=== PATIENT | female | born 1990 | race Two or more races ===

== ENCOUNTER 2023-04-10 03:39 | Emergency (ER) | payer OTHER ==
[~2023-04-10] VITALS: Ht 162.6 cm; Wt 46.3 kg
[2023-04-10] MEDS ORDERED: KEPPRA750 MG (03:51)
[2023-04-10] MEDS ORDERED: LAMICTAL200 M1 (03:51)
[2023-04-10] MEDS ORDERED: PRENATAL DHA200 MG (03:52)
[2023-04-10] MEDS ORDERED: FOLIC ACID0.8 M1 (03:52)
[2023-04-10] MEDS ORDERED: ONDANSETRON ODT4 MG PO (08:27)
[2023-04-10] MEDS ORDERED: PEPCID40 MG PO (08:27)
== END 2023-04-10 08:39 ==
LOC: ER 03:39
DX: O21.9 Vomiting of pregnancy, unspecified (principal); Z3A.01 Less than 8 weeks gestation of pregnancy

== ENCOUNTER 2023-11-14 00:03 | Inpatient (IN) | payer OTHER ==
[~2023-11-14] VITALS: Ht 160 cm; Wt 64.4 kg
[~2023-11-14 00:03] MED LIST: FOLIC ACID0.8 M1; KEPPRA750 MG; LAMICTAL200 M1; ONDANSETRON ODT4 MG PO; PEPCID40 MG PO; PRENATAL DHA200 MG
[2023-11-15] MEDS ORDERED: LAMICTAL25 MG PO (01:28)
[2023-11-15] MEDS ORDERED: KEPPRA750 MG PO (01:29)
[2023-11-15 01:55] LABS: URINE APPEARANCE Clear; URINE BILIRRUBIN Negative (NEGATIVE); URINE BLOOD Negative; URINE COLOR Yellow; URINE GLUCOSE Negative (NEGATIVE); URINE LEUKOCYTE Negative; URINE NITRATE Negative; URINE PROTEIN Negative (NEGATIVE)
[2023-11-15 01:58] LABS: URINE BACTERIA 112.1 uL (0.0-1933); URINE EPITHELIAL CELLS 8.8 uL (0.0-38.8); URINE RBC 28.3 uL (0.0-20.8); URINE WBC 11.8 uL (0.0-23.2)
[2023-11-15 02:31] LABS: HEMATOCRIT 31.7 % (36.0-45.00); HEMOGLOBIN 10.3 g/dL (12.0-15.00); MEAN CELL VOLUME 85.5 fL (80.00-100.00); MEAN CORPUSCULAR HEMOGLOBIN 27.8 pg (27.00-32.0); MEAN CORPUSCULAR HGB CONC 32.5 g/dl (32.0-36.0); PLATELET COUNT 322 K/uL (150-450); RED BLOOD COUNT 3.71 M/uL (4.00-6.00)
== END 2023-11-17 18:09 | disposition home or self-care (01) | DRG 807 ==
LOC: LDR 00:03 → OB/GYN 00:03
PROVIDERS: ADMIT Obstetrics & Gynecology Obstetrics; ATTEND Obstetrics & Gynecology Obstetrics
PROC: 4A1HXCZ Monitoring of Products of Conception, Cardiac Rate, External Approach (ICD-10-PCS; 2023-11-14)
PROC: 10E0XZZ Delivery of Products of Conception, External Approach (ICD-10-PCS; principal; 2023-11-15)
DX: O80 Encounter for full-term uncomplicated delivery (principal); Z37.0 Single live birth; Z3A.38 38 weeks gestation of pregnancy; Z20.822 Contact with and (suspected) exposure to COVID-19

== ENCOUNTER → 2025-09-07 | Emergency (ER) | payer OTHER ==
[~2025-09-07] VITALS: Ht 160 cm; Wt 51.3 kg
[~2025-09-07] MED LIST changes: +ANTIFUNGAL113 GM TOP; +CETIRIZINE HCL 10 MG TABLET PO ONE; +CETIRIZINE HCL 5MG/5ML BLIST.PACK PO ONE; +DEXAMETHASONE SODIUM PHOSPHATE 4 MG/ML VIAL IM ONE; +DEXAMETHASONE SODIUM PHOSPHATE 4 MG/ML VIAL ONE; +DIPHENHYDRAMINE HCL 50 MG/ML VIAL 1ML ONE; +KEPPRA750 MG PO; +LAMICTAL25 MG PO; +METHYLPREDNISOLONE SOD SUCC 125 MG VIAL ONE; +MUPIROCIN15 GM TOP
== END | disposition home or self-care (01) ==
LOC: ER 15:35
DX: B36.9 Superficial mycosis, unspecified (principal)